=== PATIENT | female | born 1985 | race Caucasian/White ===

== ENCOUNTER 2023-01-26 12:31 | Emergency (ER) | payer OTHER ==
[~2023-01-26] VITALS: Ht 154.9 cm; Wt 63.5 kg
[2023-01-26 12:45] VITALS: BP_SYST 124
--- NOTE | 2023-01-26 12:49 | NUR ---
Patient to ER bed H1 to gown for evaluation. Side rails up. Report given to BRITTANY MCDANIEL.
--- NOTE | 2023-01-26 12:50 | NUR ---
Patient BIB self from home. Chief Complaint: uri sx with fever and ST. Patient a&ox4 and stable. patient denies allergies.
--- NOTE | 2023-01-26 12:54 | NUR ---
ER Dr. Lakhani at bedside examining patient.
[2023-01-26] MEDS ORDERED: KETOROLAC TROMETHAMINE 60 MG/2 ML VIAL IM ONE (13:00)
[2023-01-26] MEDS ORDERED: PRED20TA PO (13:14)
[2023-01-26] MEDS ORDERED: IBUP-1969 PO (13:14)
[2023-01-26] MEDS ORDERED: PSEU120T57 PO (13:14)
--- NOTE | 2023-01-26 13:18 | NUR ---
Patient given TOradol 60mg IM in right ventral gluteal muscle. Patient agreed to medication prior to aministration. Patient tolerated well.
--- NOTE | 2023-01-26 13:33 | NUR ---
Patient states pain has improved to a 3-4/10 now instead of 7.
--- NOTE | 2023-01-26 13:34 | NUR ---
Patient given written and verbal discharge instructions and verbalizes understanding. ER MD Lakhani discussed with patient the results and treatment provided. Patient in stable condition. ID arm band removed. Rx sent to pharmacy on file, patient states received text that they are ready now. Patient educated on pain management and to follow up with PMD. Opportunity for questions provided and answered. Medication side effect fact sheet provided.
== END 2023-01-26 13:34 | disposition home or self-care (01) ==
LOC: SED 12:31
DX: J06.9 Acute upper respiratory infection, unspecified (principal); R50.9 Fever, unspecified; R05.9 Cough, unspecified; J02.9 Acute pharyngitis, unspecified; J45.909 Unspecified asthma, uncomplicated; Z79.899 Other long term (current) drug therapy
CPT/HCPCS: 99283; 96372; J1885